=== PATIENT | male | born 1980 | race Caucasian/White ===

== ENCOUNTER 2024-02-17 16:52 | Inpatient (IN) ==
[2024-02-17 19:30] LABS: ABS Basophils 0.1 10^3/uL (0.0-0.1); ABS Eosinophils 0.4 10^3/uL (0.0-0.5); ABS Lymphocytes 2.6 10^3/uL (1.0-4.8); ABS Monocytes 0.6 10^3/uL (0.0-1.1); ABS Neutrophils 3.5 10^3/uL (1.5-7.6); Eosinophil % 6.2 %; Hemoglobin 15.4 g/dL (13.2-16.3); Mean Corpuscular Hemoglobin 32.1 pg (27-33); Mean Corpuscular Volume 91.7 fL (80-97); Platelet Count 289 10^3/uL (150-450); Red Cell Distribution Width 12.8 % (12-17); White Blood Count 7.2 10^3/uL (3.6-10.2)
[2024-02-17 19:32] LABS: Urine Appearance Clear; Urine Bilirubin Negative (Negative); Urine Blood 1+ (Negative); Urine Color Yellow; Urine Glucose Negative (Negative); Urine Ketones Negative (Negative); Urine Nitrite Negative (Negative); Urine Protein Trace (Negative); Urine Specific Gravity 1.029 (1.002-1.030); Urine Urobilinogen Negative (Negative); Urine pH 5.5 (5.0-8.0)
[2024-02-17 19:45] LABS: Urine Bacteria Absent /HPF (Absent); Urine Red Blood Cell 2+(6-10/hpf) /HPF (0-Trace); Urine White Blood Cell Trace(0-5/hpf) /HPF (0-Trace)
[2024-02-17 19:48] LABS: ALT 18 U/L (7-52); AST 20 U/L (13-39); Acetaminophen < 15 mcg/mL; Albumin 4.6 g/dL (3.2-5.2); Albumin/Globulin Ratio 1.8 (1-3); Alcohol, S < 13 mg/dL (<13); Alkaline Phosphatase 41 U/L (35-149); Anion Gap 5 mmol/L (2-16); Blood Urea Nitrogen 17 mg/dL (6-24); CO2 Carbon Dioxide 31 mmol/L (22-32); Calcium 9.7 mg/dL (8.6-10.3); Chloride 100 mmol/L (101-111); Creatinine, Serum 0.88 mg/dL (0.67-1.17); Globulin 2.5 g/dL (2-4); Glucose 89 mg/dL (70-100); Potassium 4.3 mmol/L (3.5-5.0); Salicylate < 2.50 mg/dL (<30); Sodium 136 mmol/L (135-145); Total Bilirubin 0.7 mg/dL (0.2-1.0); Total Protein 7.1 g/dL (6.4-8.9); eGFR CKD-EPI 109.4 (>60)
[2024-02-17 20:02] LABS: TSH Ultra Thyroid Stim Horm 1.18 mcIU/mL (0.34-5.60)
[2024-02-17 20:10] LABS: Urine Benzodiazepine Screen None Detected (None Detect); Urine Cannabinoids Screen None Detected (None Detect); Urine Opiates Screen None Detected (None Detect)
[2024-02-17] MEDS ORDERED: Al Hydrox/Mg Hydrox/Simet LIQ 30 ML UDC PO PRN (22:10)
[2024-02-17] MEDS: Nicotine GUM 2MG FRUIT FLAVOR PO PRN (22:35)
[2024-02-18] MEDS: Nicotine PATCH 7 MG/24 HR PATCH TRANSDERM SCH (08:13)
[2024-02-18] MEDS: Vitamin THERAPEUTIC TAB PO SCH (08:15)
[2024-02-18 08:31] LABS: HDL Cholesterol 52.3 mg/dL
[2024-02-18] MEDS: Calamine LOTION BTL TOPICAL SCH (15:29)
[2024-02-18] MEDS: CMCS:diPHENhydraMINE CREAM 2%(NF) 28 gm TUBE TOPICAL SCH (15:29)
[2024-02-21] MEDS: Nicotine PATCH 21 MG/24 HR PATCH TRANSDERM SCH (12:19)
[2024-02-22] MEDS ORDERED: Polyethylene Glycol 3350 17 GM PACKET PO PRN (14:34)
[2024-02-28 08:33] VITALS: BP 145/81
== END 2024-02-28 13:07 | disposition home or self-care (01) | DRG 885 ==
LOC: ED 16:52 → EDHOLD 19:24 → BSU 21:40
PROVIDERS: ADMIT Psychiatry & Neurology Psychiatry; ATTEND Psychiatry & Neurology Psychiatry